=== PATIENT | male | born 1980 | race Two or more races ===

== ENCOUNTER 2018-06-03 02:43 | Emergency (ER) | payer BC, OTHER ==
[2018-06-03 03:29] LABS: ABSOLUTE EOSINOPHILS # (AUTO) 0.2 10^3/uL (0.0-0.6); ABSOLUTE MONOCYTES (AUTO) 1.3 10^3/uL (0.1-1.4); ABSOLUTE NEUT (AUTO) 9.4 10^3/uL (1.7-8.2); BASOPHILS % (AUTO) 0.2 % (0-2); EOSINOPHILS % (AUTO) 1.3 % (0-6); HEMATOCRIT 40.5 % (37.9-51.0); HEMOGLOBIN 13.9 g/dL (13.5-17.0); LYMPHOCYTES % (AUTO) 21.4 % (13-45); MEAN CORPUSCULAR HEMOGLOBIN 29.2 pg (27.0-33.4); MEAN CORPUSCULAR HGB CONC 34.3 g/dL (32.0-36.0); MEAN CORPUSCULAR VOLUME 85 fl (80-97); MONOCYTES % (AUTO) 9.6 % (3-13); PLATELET COUNT 247 10^3/uL (150-450); RED BLOOD COUNT 4.78 10^6/uL (4.35-5.55); RED CELL DISTRIBUTION WIDTH 12.6 % (11.5-14.0); SEGMENTED NEUTROPHILS % (AUTO) 67.5 % (42-78); TOTAL CELLS COUNTED % (AUTO) 100 %
[2018-06-03] MEDS ORDERED: MORPHINE SULFATE 10 MG/ML INJ IV ONE ×2 (03:31→05:16)
[2018-06-03] MEDS ORDERED: NORMAL SALINE 1000 ML 1,000 ML IV ONE (03:31)
[2018-06-03] MEDS ORDERED: KETOROLAC TROMETHAMINE INJ/PF 30 MG/1 ML SDV IV ONE (03:31)
[2018-06-03] MEDS ORDERED: ONDANSETRON HCL INJ/PF 4 MG/2 ML SDV IV ONE (03:31)
--- NOTE | 2018-06-03 03:42 | ER Document Report ---
ED General - General Chief Complaint: Flank Pain Stated Complaint: FLANK PAIN Time Seen by Provider: 06/03/18 03:13 TRAVEL OUTSIDE OF THE [place] IN LAST 30 DAYS: No - HPI Notes: Patient is a 37-year-old male that presents to the emergency department for chief complaint of left flank pain. Patient had ureterolithiasis last week and had stent placed in [place] by urology. Yesterday the stent was removed. Since having the stent out he has had increased pain in his left flank that radiates into his left lower abdomen. Patient has associated nausea and vomiting. Denies any aggravating or relieving factors. Current history is somewhat limited because of patient's active vomiting and pain. Past Medical History: Ureterolithiasis Past Surgical History: Ureteral stenting Social History: Reviewed in chart Family History: Reviewed and noncontributory for presenting illness Allergies: Reviewed, see documented allergy list. REVIEW OF SYSTEMS: CONSTITUTIONAL : No fever No chills No diaphoresis No recent illness EENT: No vision changes No congestion No sore throat CARDIOVASCULAR: No chest pain No palpitations RESPIRATORY: No shortness of breath No cough No difficulty breathing GASTROINTESTINAL: Left flank pain abdominal pain nausea vomiting No diarrhea GENITOURINARY: No dysuria No hematuria No difficulty urinating MUSCULOSKELETAL: No back pain No leg pain No arm pain SKIN: No rashes No lesions LYMPHATIC: No swollen, enlarged glands. NEUROLOGICAL: No lightheadedness No headache No weakness No paresthesias PSYCHIATRIC: No anxiety No depression PHYSICAL EXAMINATION: Vital signs reviewed, nursing noted reviewed. GENERAL: Ill-appearing, actively vomiting, well-nourished HEAD: Atraumatic, normocephalic. EYES: Eyes appear normal, extraocular movements intact, sclera anicteric, conjunctiva are normal. ENT: nares patent, oropharynx clear without exudates. Moist mucous membranes. NECK: Normal range of motion, supple without lymphadenopathy LUNGS: Breath sounds clear to auscultation bilaterally and equal. No wheezes rales or rhonchi. HEART: Regular rate and rhythm without murmurs ABDOMEN: Left CVA tenderness, soft, nontender, normoactive bowel sounds. No rebound, guarding, or rigidity. No masses appreciated. EXTREMITIES: Nontender, good range of motion, no pitting or edema. NEUROLOGICAL: No focal neurological deficits. Moves all extremities spontaneously Motor and sensory grossly intact on exam. PSYCH: Normal mood, normal affect. SKIN: Warm, Dry, normal turgor, no rashes or lesions noted on exposed skin - Related Data Allergies/Adverse Reactions: Penicillins Allergy (Verified 06/03/18 03:55) Past Medical History - Social History Smoking Status: Never Smoker Family History: Reviewed & Not Pertinent Pulmonary Medical History: Reports: Hx Asthma Renal/ Medical History: Reports: Hx Kidney Stones Past Surgical History: Reports: Hx Tonsillectomy - Immunizations Immunizations up to date: No Physical Exam - Vital signs Vitals: Temp Pulse Resp BP Pulse Ox 97.9 F 90 18 157/92 H 97 06/03/18 02:44 06/03/18 02:44 06/03/18 02:44 06/03/18 02:44 06/03/18 02:44 Course - Re-evaluation Re-evalutation: 06/03/18 03:41 Vitals reviewed. Nursing notes reviewed. Patient is actively vomiting during my initial evaluation. He was ordered IV hydration, Zofran, Toradol and morphine for symptomatic management. Patient does have a leukocytosis of 14 however he has no other Sirs criteria and is therefore not meeting sepsis criteria. 06/03/18 04:54 Patient has left-sided associated hydronephrosis without discernible stone this is secondary to his recently passed ureterolithiasis. His renal function is normal. He does have a slight leukocytosis of 14 and some bacteria on UA. Patient is currently on antibiotics and has at least 5 days left, he will continue antibiotics as already prescribed. He did get relief after medication. Patient was encouraged to follow-up with his urologist in the next 1-2 days. Patient is currently tolerating oral intake and feeling better. Laboratory 06/03/18 06/03/18 06/03/18 03:15 03:15 04:25 WBC 14.0 H RBC 4.78 Hgb 13.9 Hct 40.5 MCV 85 MCH 29.2 MCHC 34.3 RDW 12.6 Plt Count 247 Seg Neutrophils % 67.5 Lymphocytes % 21.4 Monocytes % 9.6 Eosinophils % 1.3 Basophils % 0.2 Absolute Neutrophils 9.4 H Absolute Lymphocytes 3.0 Absolute Monocytes 1.3 Absolute Eosinophils 0.2 Absolute Basophils 0.0 Sodium 140.3 Potassium 4.1 Chloride 102 Carbon Dioxide 28 Anion Gap 10 BUN 20 Creatinine 1.06 Est GFR ( Amer) > 60 Est GFR (Non-Af Amer) > 60 Glucose 105 Calcium 9.4 Urine Color YELLOW Urine Appearance SLIGHTLY-CLOUDY Urine pH 5.0 Ur Specific [place] 1.017 Urine Protein 100 H Urine Glucose (UA) NEGATIVE Urine Ketones NEGATIVE Urine Blood LARGE H Urine Nitrite NEGATIVE Urine Bilirubin NEGATIVE Urine Urobilinogen NEGATIVE Ur Leukocyte Esterase TRACE H Urine WBC (Auto) 20 Urine RBC (Auto) >182 Urine Bacteria (Auto) TRACE Squamous Epi Cells Auto <1 Calcium Oxalate Cr Auto RARE Urine Mucus (Auto) OCC Urine Yeast (Budding) PRESENT Urine Ascorbic Acid NEGATIVE 06/03/18 05:09 - Vital Signs Vital signs: Temp Pulse Resp BP Pulse Ox 97.9 F 90 18 157/92 H 97 06/03/18 02:44 06/03/18 02:44 06/03/18 02:44 06/03/18 02:44 06/03/18 02:44 - Laboratory Result Diagrams: 06/03/18 03:15 06/03/18 03:15 Laboratory results interpreted by me: 06/03/18 06/03/18 03:15 04:25 WBC 14.0 H Absolute Neutrophils 9.4 H Urine Protein 100 H Urine Blood LARGE H Ur Leukocyte Esterase TRACE H Discharge - Discharge Clinical Impression: Left flank pain Hydronephrosis Qualifiers: Hydronephrosis type: unspecified Qualified Code(s): N13.30 - Unspecified hydronephrosis Condition: Stable Disposition: HOME, SELF-CARE Instructions: Flank Pain ([facility]) Additional Instructions: Please return to the emergency department if you have any worsening, or concern of your symptoms. Please return to the emergency department if you develop chest pain, difficulty breathing, severe abdominal pain, or ongoing vomiting. Please follow-up with your primary care physician in 2-3 days and any other recommended physicians. If prescribed, take all medications as directed. If you have any questions or concerns do not hesitate to return the emergency department for evaluation. Call your urologist in the morning for close follow-up Prescriptions: Cephalexin Monohydrate [Keflex 500 mg Capsule] 500 mg PO Q6H 5 Days capsule Oxycodone HCl/Acetaminophen [Percocet 5-325 mg Tablet] 1 tab PO Q4H PRN #8 tablet PRN Reason: Tamsulosin HCl [Flomax 0.4 mg Cap.sr] 0.4 mg PO DAILY #7 cap.sr.24h
[2018-06-03 04:13] LABS: ANION GAP 10 (5-19); BLOOD UREA NITROGEN 20 mg/dL (7-20); CALCIUM 9.4 mg/dL (8.4-10.2); CARBON DIOXIDE 28 mmol/L (22-30); CHLORIDE 102 mmol/L (98-107); GLUCOSE 105 mg/dL (75-110); POTASSIUM 4.1 mmol/L (3.6-5.0); SODIUM 140.3 mmol/L (137-145)
[2018-06-03 04:42] LABS: APPEARANCE,URINE SLIGHTLY-CLOUDY; BILIRUBIN,URINE NEGATIVE (NEGATIVE); CALCIUM OXALATE CRYSTALS,URINE RARE /HPF; COLOR,URINE YELLOW; GLUCOSE, URINE NEGATIVE (NEGATIVE); KETONES,URINE NEGATIVE (NEGATIVE); LEUKOCYTE ESTERASE,URINE TRACE (NEGATIVE); NITRITE,URINE NEGATIVE (NEGATIVE); PROTEIN,URINE 100 mg/dL (NEGATIVE); URINE SPECIFIC GRAVITY 1.017; UROBILINOGEN,URINE NEGATIVE mg/dL (<2.0)
--- NOTE | 2018-06-03 05:03 | RADIOLOGY REPORT (SQ) ---
EXAM DESCRIPTION: CT ABDOMEN PELVIS WITHOUT IV CONTRAST COMPLETED DATE/TME: 06/03/2018 03:42 CLINICAL HISTORY: 37 years Male, left flank pain Comparison:08/06/2015 Technique: No contrast. Coronal and sagittal reformat. This exam was performed according to our departmental dose-optimization program, which includes automated exposure control, adjustment of the mA and/or kV according to patient size and/or use of iterative reconstruction technique.[facility]: Dose Right [facility]: CareDose [facility]: Dose Right [facility]: Teradose 4D [facility]: [employer] LIMITATIONS: None Findings: Moderate left hydronephrosis/hydroureter, moderate left periureteral fat stranding, and minimal left perinephric fat stranding. No obstructive stone. Previous left proximal ureteral stone is absent compared with CT from July 2015. Chronic left pelvic phlebolith. Punctate right nephrolithiasis. Normal appendix. Unenhanced lower thorax, abdominopelvic structures, and musculoskeleton appear otherwise grossly unremarkable. Impression: Moderate obstructive findings of the left urinary collecting system. No obstructive stone discerned. Differential etiologies include recently passed stone, scar, chronic dilation, or occult neoplasm. Consider multiphase contrast CT of the renal system or Urology consultation.
[2018-06-03 05:32] VITALS: BP 137/77
== END 2018-06-03 05:33 | disposition home or self-care (01) ==
LOC: ER 02:43
DX: N13.39 Other hydronephrosis (principal); D72.829 Elevated white blood cell count, unspecified; R11.2 Nausea with vomiting, unspecified; J45.909 Unspecified asthma, uncomplicated; R10.9 Unspecified abdominal pain
CPT/HCPCS: 96376; 99284; 96361; 96374; 96375; 36415; 87086; 85025; 80048; 81001; 74176; J1885; J2270; J2405; J7030

== ENCOUNTER 2019-02-15 23:08 | Emergency (ER) | payer BC ==
[2019-02-16] MEDS ORDERED: NAPROXEN 250 MG TABLET PO ONE (00:23)
[2019-02-16] MEDS ORDERED: DIPH/PERTUSS(ACELL)/TETANUS VAC/PF 0.5 ML SYR (>=10YO) IM ONE (00:23)
--- NOTE | 2019-02-16 01:00 | ER Document Report ---
ED General - General Chief Complaint: Thumb Injury Stated Complaint: HAND INJURY Time Seen by Provider: 02/15/19 23:57 Primary Care Provider: [facility] [Provider Group] - Follow up in 3-5 days TRAVEL OUTSIDE OF THE [place] IN LAST 30 DAYS: No - HPI Notes: 38-year-old male to the emergency department with complaints of thumb pain and possible retained foreign body. He states that today he was cleaning up some wood when the wood splintered and he thought it went into his thumb. He states that he noticed that the wood splinter and then he broke it off and through the office of he would not injure his hands further. He states that when he did that he noticed that he started to have pain to the medial aspect of the right thumb along the nailbed. He states that he attempted to look for "a thorn or splinter" but was unsuccessful in finding one he states that he did notice that when he squeezed his thumb he had some bleeding around the nailbed. He denies any fevers, chills, pus, streaking redness. He states that he has not taken anything for pain. He denies being up-to-date on his tetanus. He is right- handed. - Related Data Allergies/Adverse Reactions: Penicillins Allergy (Verified 06/03/18 03:55) Past Medical History - General Information source: Patient, Relative - Social History Smoking Status: Never Smoker Frequency of alcohol use: None Drug Abuse: None Family History: Reviewed & Not Pertinent Pulmonary Medical History: Reports: Hx Asthma Renal/ Medical History: Reports: Hx Kidney Stones. Denies: Hx Peritoneal Dialysis Past Surgical History: Reports: Hx Tonsillectomy - Immunizations Immunizations up to date: No Review of Systems - Review of Systems Constitutional: denies: Chills, Fever EENT: No symptoms reported Cardiovascular: denies: Chest pain, Dizziness, Lightheaded Respiratory: denies: Cough, Short of breath Gastrointestinal: denies: Abdominal pain, Diarrhea, Nausea, Vomiting Musculoskeletal: See HPI, Joint pain Skin: See HPI Neurological/Psychological: denies: Headaches -: Yes All other systems reviewed and negative Physical Exam - Vital signs Vitals: Temp Pulse Resp BP Pulse Ox 97.7 F 64 16 130/93 H 99 02/15/19 23:12 02/15/19 23:12 02/15/19 23:12 02/15/19 23:12 02/15/19 23:12 Interpretation: Normal - General General appearance: Appears well, Alert In distress: None - HEENT Head: Normocephalic, Atraumatic Eyes: Normal Pupils: PERRL - Respiratory Respiratory status: No respiratory distress Chest status: Nontender Breath sounds: Normal Chest palpation: Normal - Cardiovascular Rhythm: Regular Heart sounds: Normal auscultation Murmur: No - Extremities Notes: To the medial aspect of the right thumb along the nailbed there is tenderness to palpation. There is multiple small abrasions with bleeding controlled. There does not appear to be any foreign body in the skin. There is mild edema surrounding the nailbed. There is no purulent drainage. The finger is not flexed it is not circumferentially edematous and it is not tender along the flexor tendon sheath just and just in a flexor tenosynovitis. Cap refill is less than 2 seconds. Patient has 5 out of 5 handgrip bilaterally. Radial pulses are intact and equal. Nontender to palpation of her bilateral wrists and elbow. Patient can wiggle all fingers against resistance in flexion and extension and opposition in the thumb and the little finger. - Neurological Neuro grossly intact: Yes Cognition: Normal Orientation: AAOx4 Sarita Coma Scale Eye Opening: Spontaneous Sarita Coma Scale Verbal: Oriented [place] Coma Scale Motor: Obeys Commands Sarita Coma Scale Total: 15 Speech: Normal Motor strength normal: LUE, RUE, LLE, RLE Sensory: Normal - Psychological Associated symptoms: Normal affect, Normal mood - Skin Skin Temperature: Warm Skin Moisture: Dry Skin Color: Normal Skin irregularity: Laceration - See extremities for further discussion about abrasions around the nailbed on the thumb. Course - Re-evaluation Re-evalutation: 02/16/19 Finger X-Ray 02/16/19 00:22 IMPRESSION: No evidence of acute osseous injury involving the right thumb. No radiopaque foreign body is identified. Impression: Right thumb injury, right thumb abrasion. No foreign body seen on my exam and none on x-ray. Suspect that patient contused the thumb but will also cover with an antibiotic due to the abrasions around the thumb. This could be an early and evolving paronychia. Discussed with patient and he agrees with the plan. We will send home with pain medicine and antibiotics. I encouraged to return if any fevers worsening pain redness worsening swelling or any other complaints patient agrees with the plan. - Vital Signs Vital signs: Temp Pulse Resp BP Pulse Ox 98 F 62 16 126/82 H 97 02/16/19 01:02/16/19 01:02/16/19 01:02/16/19 01:02/16/19 01:20 - Diagnostic Test Radiology reviewed: Image reviewed, Reports reviewed Discharge - Discharge Clinical Impression: Thumb pain Qualifiers: Laterality: right Qualified Code(s): M79.644 - Pain in right finger(s) Abrasion of thumb Qualifiers: Encounter type: initial encounter Laterality: right Qualified Code(s): S60.311A - Abrasion of right thumb, initial encounter Thumb contusion Qualifiers: Encounter type: initial encounter Damage to nail status: without damage Condition: Stable Disposition: HOME, SELF-CARE Instructions: Contusion ([facility]) Additional Instructions: TAKE MEDICINES PRESCRIBED. COMPLETE ANTIBIOTICS. WARM COMPRESSES THREE TIMES A DAY FOR 20 MINUTES. RETURN IF WORSENING PAIN, WORSENING SWELLING, FEVERS, STREAKING REDNESS UP THE FINGER. Prescriptions: Ketorolac Tromethamine [Toradol 10 mg Tablet] 10 mg PO Q8HP PRN #12 tablet PRN Reason: Doxycycline Hyclate 100 mg PO BID #14 capsule Referrals: [facility] [Provider Group] - Follow up in 3-5 days
--- NOTE | 2019-02-16 01:17 | RADIOLOGY REPORT (SQ) ---
EXAM: X-ray fingers right CLINICAL DATA: 38-year-old male with possible retained foreign body in distal phalanx of 1st digit of right hand (splinter) TECHNICAL DATA: Three x-ray views of the 1st digit of the right hand were performed on 02/16/2019 at 12:58 AM. COMPARISONS: None FINDINGS: There is no evidence of fracture or dislocation. There is no significant arthritis or degenerative change. No focal lytic or sclerotic bone lesions are seen. Bone mineralization is normal. No focal soft tissue abnormalities are identified. No radiopaque foreign body is identified. There is no evidence of subcutaneous emphysema. IMPRESSION: No evidence of acute osseous injury involving the right thumb. No radiopaque foreign body is identified.
[2019-02-16 01:55] VITALS: BP 126/82
== END 2019-02-16 01:20 | disposition home or self-care (01) ==
LOC: ER 23:08
DX: S60.311A Abrasion of right thumb, initial encounter (principal); M79.644 Pain in right finger(s); W45.8XXA Other foreign body or object entering through skin, initial encounter; J45.909 Unspecified asthma, uncomplicated
CPT/HCPCS: 90471; 90715; 99283

== ENCOUNTER 2019-04-26 00:44 | Emergency (ER) | payer BC ==
[2019-04-26 01:24] LABS: ABSOLUTE EOSINOPHILS # (AUTO) 0.2 10^3/uL (0.0-0.6); ABSOLUTE LYMPHOCYTES (AUTO) 3.1 10^3/uL (0.5-4.7); ABSOLUTE MONOCYTES (AUTO) 1.1 10^3/uL (0.1-1.4); ABSOLUTE NEUT (AUTO) 7.6 10^3/uL (1.7-8.2); BASOPHILS % (AUTO) 0.3 % (0-2); EOSINOPHILS % (AUTO) 1.7 % (0-6); HEMATOCRIT 41.8 % (37.9-51.0); LYMPHOCYTES % (AUTO) 25.6 % (13-45); MEAN CORPUSCULAR HEMOGLOBIN 28.4 pg (27.0-33.4); MEAN CORPUSCULAR HGB CONC 33.6 g/dL (32.0-36.0); MEAN CORPUSCULAR VOLUME 85 fl (80-97); MONOCYTES % (AUTO) 9.1 % (3-13); PLATELET COUNT 289 10^3/uL (150-450); RED BLOOD COUNT 4.93 10^6/uL (4.35-5.55); RED CELL DISTRIBUTION WIDTH 12.9 % (11.5-14.0); SEGMENTED NEUTROPHILS % (AUTO) 63.3 % (42-78); TOTAL CELLS COUNTED % (AUTO) 100 %; WHITE BLOOD COUNT 12.1 10^3/uL (4.0-10.5)
[2019-04-26 01:32] LABS: APPEARANCE,URINE SLIGHTLY-CLOUDY; BILIRUBIN,URINE NEGATIVE (NEGATIVE); COLOR,URINE YELLOW; GLUCOSE, URINE NEGATIVE (NEGATIVE); KETONES,URINE NEGATIVE (NEGATIVE); LEUKOCYTE ESTERASE,URINE LARGE (NEGATIVE); NITRITE,URINE NEGATIVE (NEGATIVE); PROTEIN,URINE 30 mg/dL (NEGATIVE); URINE SPECIFIC GRAVITY 1.021; UROBILINOGEN,URINE NEGATIVE mg/dL (<2.0)
[2019-04-26 01:44] LABS: ALBUMIN 4.6 g/dL (3.5-5.0); ALKALINE PHOSPHATASE 62 U/L (38-126); ANION GAP 8 (5-19); ASPARTATE AMINO TRANSFERASE 25 U/L (17-59); BILIRUBIN,DIRECT 0.1 mg/dL (0.0-0.4); BILIRUBIN,TOTAL 0.3 mg/dL (0.2-1.3); BLOOD UREA NITROGEN 21 mg/dL (7-20); CALCIUM 9.7 mg/dL (8.4-10.2); CARBON DIOXIDE 32 mmol/L (22-30); CHLORIDE 101 mmol/L (98-107); GLUCOSE 103 mg/dL (75-110); POTASSIUM 4.1 mmol/L (3.6-5.0); TOTAL PROTEIN 7.9 g/dL (6.3-8.2)
[2019-04-26] MEDS ORDERED: ONDANSETRON HCL INJ/PF 4 MG/2 ML SDV IV ONE (02:27)
[2019-04-26] MEDS ORDERED: FENTANYL CITRATE INJ/PF 100 MCG/2 ML AMPUL IV ONE (02:27)
--- NOTE | 2019-04-26 02:35 | ER Document Report ---
ED General - General Chief Complaint: Flank Pain Stated Complaint: FLANK/ABDOMINAL PAIN Time Seen by Provider: 04/26/19 02:23 TRAVEL OUTSIDE OF THE [place] IN LAST 30 DAYS: No - HPI Notes: Patient is a 38-year-old male with a history of kidney stones, left ureteral scarring, and recent nephrostomy tube, who presents to the emergency department for evaluation of left flank pain. He states this started about 2 to 3 hours prior to my evaluation. He describes a sharp stabbing pain with 2-3 episodes of nonbloody, nonbilious emesis. He is concerned it might be blocked. He is scheduled for ureteral reconstruction of the end of April by urology and [facility]. No known fevers to his knowledge. - Related Data Allergies/Adverse Reactions: ceftriaxone [From Rocephin] Allergy (Verified 04/26/19 00:45) Penicillins Allergy (Verified 04/26/19 00:44) Home Medications: Ultram, potassium Past Medical History - General Information source: Patient - Social History Smoking Status: Never Smoker Family History: Reviewed & Not Pertinent Patient has suicidal ideation: No Patient has homicidal ideation: No Pulmonary Medical History: Reports: Hx Asthma Renal/ Medical History: Reports: Hx Kidney Stones. Denies: Hx Peritoneal Dialysis Past Surgical History: Reports: Hx Tonsillectomy - Immunizations Immunizations up to date: No Review of Systems - Review of Systems Constitutional: No symptoms reported EENT: No symptoms reported Cardiovascular: No symptoms reported Respiratory: No symptoms reported Gastrointestinal: See HPI Genitourinary: See HPI Musculoskeletal: No symptoms reported Skin: No symptoms reported Neurological/Psychological: No symptoms reported Physical Exam - Vital signs Vitals: Temp Pulse Resp BP Pulse Ox 97.6 F 89 18 141/91 H 98 04/26/19 00:49 04/26/19 00:49 04/26/19 00:49 04/26/19 00:49 04/26/19 00:49 - Notes Notes: Is a 38-year-old male who appears her stated age in a moderate amount of distress. He is visibly uncomfortable, mildly tachypneic, extremely nauseated. Vital signs reviewed, please refer to chart. Head is normocephalic, atraumatic. Pupils equal round, reactive to light. Neck is supple without meningismus. Heart is regular rate and rhythm. Lungs are clear to auscultation bilaterally. Abdomen is soft, nontender, normoactive bowel sounds throughout. Patient has nephrostomy tube in place on the left with cloudy yellow urine noted. Extremities without cyanosis, clubbing. Posterior calves are nontender. Peripheral pulses are equal. Skin is warm and dry. Course - Re-evaluation Re-evalutation: 04/26/19 02:38 Patient presents emergency department for evaluation. He has nephrostomy tube in place. He has sudden onset of increased pain and vomiting. He does have mildly elevated white count and large leukocyte esterase noted in his urine. Patient had IV placed, was given IV fluids, pain medicine, nausea medicine. We will send him for an IV contrasted scan to evaluate for pyelonephritis or other acute finding. Patient stable, we will continue to monitor. 04/26/19 05:[address] scan did show continued hydronephrosis, hydroureter, and a 1.5 cm ureteral stone. This was known to the patient. I went in to evaluate the patient. Using sterile technique, 10 mL of saline were flushed through the nephrostomy tube. Following this, the nephrostomy tube was draining without difficulty. Patient increased output from this nephrostomy, thus clearing the apparent blockage. The patient was feeling clinically improved. Given this improvement as well as the sudden onset of his pain and nausea, my suspicion is that all of his symptoms were from blockage. The urine sample that he provided, not from the nephrostomy bag, did infection or large leukocyte esterase. Given this information I am inclined to treat him for possible UTI, although I suspect that most of his symptoms are secondary to nephrostomy tube obstruction. I will send the patient home with a small amount of pain medicine and nausea medication. I will send him home with a prescription for Cipro. He is to follow-up with Dr. hollis, return to the ED with worsening. 04/26/19 05:59 04/26/19 06:[address] Sweeney, urologist from [facility]. The patient was discussed. He agrees it was likely a blocked nephrostomy tube, but given the presence of budding yeast, he recommends the addition of Diflucan to this patient's regimen. This was explained to the patient, first dose was given here, and prescription was written. - Vital Signs Vital signs: Temp Pulse Resp BP Pulse Ox 98.4 F 101 H 18 125/79 96 04/26/19 05:41 04/26/19 05:41 04/26/19 00:49 04/26/19 05:41 04/26/19 05:41 - Laboratory Result Diagrams: 04/26/19 01:10 04/26/19 01:10 Laboratory results interpreted by me: 04/26/19 04/26/19 04/26/19 01:10 01:10 01:10 WBC 12.1 H Carbon Dioxide 32 H BUN 21 H Urine Protein 30 H Urine Blood SMALL H Ur Leukocyte Esterase LARGE H - Diagnostic Test Radiology reviewed: Image reviewed, Reports reviewed Radiology results interpreted by me: 04/26/19 05:58 Abdomen/Pelvis CT 04/26/19 02:28 IMPRESSION: 1. 1.5 cm obstructing calculus in the mid left ureter. Severe left hydronephrosis. 2. Left nephrostomy tube in place. Correlation for nephrostomy tube function recommended. This exam was performed according to our departmental dose-optimization program, which includes automated exposure control, adjustment of the mA and/or kV according to patient size and/or use of iterative reconstruction technique. Discharge - Discharge Clinical Impression: Obstructed nephrostomy tube, Urinary tract infection Condition: Stable Disposition: HOME, SELF-CARE Instructions: Ciprofloxacin ([facility]), Urinary Tract Infection ([facility]) Additional Instructions: Take medications as directed. Follow-up with Dr. hollis next week. If you develop fever, increased pain, vomiting, or any other new or concerning symptoms, please return immediately to the emergency department for reevaluation. Prescriptions: Ciprofloxacin HCl [Cipro 500 mg Tablet] 500 mg PO BID #14 tablet Fluconazole [Diflucan] 150 mg PO DAILY #4 tablet
[2019-04-26] MEDS ORDERED: NORMAL SALINE 1000 ML 1,000 ML IV ONE (02:39)
[2019-04-26] MEDS ORDERED: HYDROMORPHONE HCL INJ/PF 2 MG/ML AMPULE IV ONE (03:17)
--- NOTE | 2019-04-26 04:17 | RADIOLOGY REPORT (SQ) ---
EXAM DESCRIPTION: CT ABDOMEN PELVIS WITH IV CONTRAST COMPLETED DATE/TME: 04/26/2019 02:28 CLINICAL HISTORY: left flank pain, recent nephrostomy tube placement COMPARISON: 06/17/2015 TECHNIQUE: CT of the abdomen and pelvis performed following IV administration of 100 mL of Omnipaque 350. FINDINGS: Lung Bases: The visualized lung bases are clear. Bones: No destructive bone lesions identified. Abdomen: Liver: The liver has normal size and density. No intrahepatic mass or biliary dilatation. Gallbladder: No calcified gallstones. Spleen, Pancreas, and Adrenal Glands: The spleen, pancreas, and adrenal glands are unremarkable. Kidneys: Left percutaneous nephrostomy tube. Severe left hydronephrosis. There is a greater 1.5 cm obstructing calculus in the mid left ureter. Left perinephric change. No right-sided hydronephrosis. Vasculature: The aorta and IVC have normal caliber and position. The portal vein is patent. The proximal visceral and renal arteries are patent. Stomach: The stomach and duodenum have normal course. Other: No free intraperitoneal air. No free fluid or lymphadenopathy. Pelvis: Bladder: Curvilinear calcification is urinary bladder. Bowel: No dilated loops of large or small bowel. Appendix: Normal appendix. Pelvis: Prostate is not enlarged. IMPRESSION: 1. 1.5 cm obstructing calculus in the mid left ureter. Severe left hydronephrosis. 2. Left nephrostomy tube in place. Correlation for nephrostomy tube function recommended. This exam was performed according to our departmental dose-optimization program, which includes automated exposure control, adjustment of the mA and/or kV according to patient size and/or use of iterative reconstruction technique.
[2019-04-26] MEDS ORDERED: CIPROFLOXACIN 400 MG/D5W RTU 400 MG/200 ML RTUPB IV ONE (05:16)
[2019-04-26] MEDS ORDERED: ONDANSETRON ODT 4 MG TAB (6 TAB/ER DISP) PO PRN (05:59)
[2019-04-26] MEDS ORDERED: HYDROCODONE/ACETAMINOPHEN 5-325 MG (6 TAB/ER DISP) PO PRN (05:59)
[2019-04-26] MEDS ORDERED: FLUCONAZOLE 100 MG TABLET PO ONE (06:07)
[2019-04-26 06:46] VITALS: BP 143/90
== END 2019-04-26 06:54 | disposition home or self-care (01) ==
LOC: ER 00:44
DX: T83.092A Other mechanical complication of nephrostomy catheter, initial encounter (principal); Y73.8 Miscellaneous gastroenterology and urology devices associated with adverse incidents, not elsewhere classified; N39.0 Urinary tract infection, site not specified; N13.2 Hydronephrosis with renal and ureteral calculous obstruction; D72.829 Elevated white blood cell count, unspecified; R10.9 Unspecified abdominal pain; R11.2 Nausea with vomiting, unspecified; R06.82 Tachypnea, not elsewhere classified; J45.909 Unspecified asthma, uncomplicated; Z79.899 Other long term (current) drug therapy; Z93.6 Other artificial openings of urinary tract status; Z88.1 Allergy status to other antibiotic agents; Z88.0 Allergy status to penicillin
CPT/HCPCS: 99284; 96361; 96375; 96365; 36415; 87040; 87086; 85025; 87088; 80053; 81001; 87186; 74177; J3010; J1170; J2405; J7030; J0744

== ENCOUNTER 2020-01-23 16:52 | Emergency (ER) | payer BC ==
[2020-01-23] MEDS ORDERED: NORMAL SALINE 1000 ML 1,000 ML IV ONE (17:25)
--- NOTE | 2020-01-23 17:31 | ER Document Report ---
ED General - General Chief Complaint: Abdominal Pain Stated Complaint: FEELING FAINT/NAUSEA Time Seen by Provider: 01/23/20 17:06 TRAVEL OUTSIDE OF THE [place] 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 He was intensely diaphoretic and became weak and shaky and experienced diffuse muscular cramping. He was very nauseated but did not vomit. He denies any chest pain. He was given 1 L normal saline by EMS during transport. His symptoms have now essentially resolved. Patient has a history of renal stones and has had previous obstruction of the left ureter and required surgery including placement of a ureterostomy and subsequent left ureteral reimplantation surgery. He had been to his urologist this morning for routine follow-up. They note that he is having some intermittent colic and has a new stone on the left side but this appears to be small and they recommended conservative medical therapy and start him on Flomax hoping that he will spontaneously passed the stone. Patient is otherwise generally healthy. He reports allergies to Rocephin and penicillin. He is a non-smoker and says he rarely consumes social alcohol. He denies any drug use. - Related Data Allergies/Adverse Reactions: ceftriaxone [From Rocephin] Allergy (Verified 04/26/19 00:45) Penicillins Allergy (Verified 04/26/19 00:44) Home Medications: ibuprofen, potassium, afrin Past Medical History - General Information source: Patient, Relative, [facility] Records - Social History Smoking Status: Never Smoker Frequency of alcohol use: None Drug Abuse: None Occupation: sheep farm worker Lives with: Family Family History: Reviewed & Not Pertinent Pulmonary Medical History: Reports: Hx Asthma Renal/ Medical History: Reports: Hx Kidney Stones. Denies: Hx Peritoneal Dialysis Past Surgical History: Reports: Hx Kidney (Renal Surgery) - left ureter surgery, Hx Tonsillectomy - Immunizations Immunizations up to date: No Review of Systems - Review of Systems Notes: Constitutional: As per HPI. HENT: Negative for sore throat. Eyes: Negative for visual changes. Cardiovascular: Negative for chest pain. Respiratory: Negative for shortness of breath. Gastrointestinal: As per HPI. Genitourinary: Negative for dysuria. Musculoskeletal: Negative for back pain. Skin: Negative for rash. Neurological: Negative for headaches, focal weakness or numbness. 10 point ROS negative except as marked above and in HPI. Physical Exam - Vital signs Vitals: Temp Pulse Resp BP Pulse Ox 98.6 F 83 16 133/79 H 100 01/23/20 17:01 01/23/20 17:01 01/23/20 17:01 01/23/20 17:01 01/23/20 17:01 - Notes Notes: GENERAL: Well-developed well-nourished male approximately stated age appearing in no acute distress. SKIN: Mildly diaphoretic. Good turgor no rashes. HEAD: Normocephalic atraumatic. EYES: PERRLA. EOMI. Conjunctivae and sclerae clear. EARS: CANALS AND TMS CLEAR. NOSE: CLEAR. MOUTH: Moist mucosa. Good dentition. No stridor or edema. No drooling. NECK: Supple. No masses or thyromegaly. No adenopathy. Carotids 2+ without bruits. No JVD. BACK: Symmetrical without tenderness. CHEST: Respirations unlabored. Breath sounds clear and symmetrical. HEART: Regular rhythm. No murmur gallop or rub. ABDOMEN: Soft nontender without masses, organomegaly or rebound. Bowel sounds normally active. No bruits. GENITALIA: Deferred. EXTREMITIES: No edema. No calf tenderness. Cap refill less than 1.5 seconds. Dorsalis pedis and posterior tibial pulses 3+ and symmetrical. NEUROLOGICAL: GCS 15. Alert and oriented x3. Fluent speech. Cranial nerves II through XII intact. Sensorimotor and cerebellar normal. Normal tone. PSYCHIATRIC: Appropriate affect. Course - Re-evaluation Re-evalutation: 01/23/20 18:58 Clinically patient has heat exhaustion. He received 2 L of IV normal saline here and is currently asymptomatic. EKG shows LVH and a single PVC. His troponin is normal. His comprehensive metabolic profile and CBC are unremarkable as is his urinalysis. CK was mildly elevated 350. He appears stable for outpatient follow-up with PMD and I suggested that he avoid heat stress within the next 3 days and increase oral fluid intake. Findings, clinical impression and plan of treatment have been discussed with patient/family. Understanding of current findings and recommendations has been acknowledged by them and there is agreement regarding disposition and follow-up. - Vital Signs Vital signs: Temp Pulse Resp BP Pulse Ox 98.6 F 83 16 133/79 H 100 01/23/20 17:01 01/23/20 17:01 01/23/20 17:01 01/23/20 17:01 01/23/20 17:01 - Laboratory Result Diagrams: 01/23/20 16:59 01/23/20 16:59 Laboratory results interpreted by me: 01/23/20 16:59 Creatine Kinase 248 H - EKG Interpretation by Me Additional EKG results interpreted by me: 01/23/20 17:52 Twelve-lead EKG from 1732 hrs. shows normal sinus rhythm with a rate of 83 and a single PVC. QRS axis is +3 degrees. Intervals are normal. Changes consistent with LVH are noted. No acute ST changes are present. There is no prior tracing for comparison. Impression: Normal sinus rhythm with single PVC and left ventricular hypertrophy. Indication for current study: Heat exhaustion. Discharge - Discharge Clinical Impression: Heat exhaustion Condition: Stable Disposition: HOME, SELF-CARE Additional Instructions: Heat Exhaustion You have had an episode of heat exhaustion. The body overheats when sweating fails to keep the temperature down due to high humidity, exercise, or dehydration. Typical symptoms may include muscle cramps, dizziness, nausea, and even chilling. You should rest and drink plenty of fluids. Do not resume any activities until you feel fully back to normal. To prevent a recurrence, avoid working in the heat. Always drink plenty of fluids when the weather is hot, particularly if you will be exercising. Use extra caution when the humidity is high. If you feel symptoms of heat illness, douse yourself with cold water and rest in the shade. Call the doctor if you develop confusion, repeated vomiting, severe headache, severe muscle spasms, fever, chest pain or shortness of breath. Return here as needed for new or worsening symptoms: Pain that is worsening or unimproved Uncontrolled vomiting High fever or shaking chills Overall worsening Follow-up with your primary care physician as needed.
[2020-01-23 17:55] LABS: ABSOLUTE EOSINOPHILS # (AUTO) 0.1 10^3/uL (0.0-0.6); ABSOLUTE LYMPHOCYTES (AUTO) 1.7 10^3/uL (0.5-4.7); ABSOLUTE MONOCYTES (AUTO) 0.6 10^3/uL (0.1-1.4); ABSOLUTE NEUT (AUTO) 5.6 10^3/uL (1.7-8.2); BASOPHILS % (AUTO) 0.4 % (0-2); EOSINOPHILS % (AUTO) 1.8 % (0-6); HEMATOCRIT 41.6 % (37.9-51.0); LYMPHOCYTES % (AUTO) 21.3 % (13-45); MEAN CORPUSCULAR HEMOGLOBIN 28.7 pg (27.0-33.4); MEAN CORPUSCULAR HGB CONC 33.6 g/dL (32.0-36.0); MEAN CORPUSCULAR VOLUME 86 fl (80-97); MONOCYTES % (AUTO) 7.8 % (3-13); PLATELET COUNT 230 10^3/uL (150-450); RED BLOOD COUNT 4.87 10^6/uL (4.35-5.55); RED CELL DISTRIBUTION WIDTH 13.3 % (11.5-14.0); SEGMENTED NEUTROPHILS % (AUTO) 68.7 % (42-78); TOTAL CELLS COUNTED % (AUTO) 100 %; WHITE BLOOD COUNT 8.2 10^3/uL (4.0-10.5)
[2020-01-23 18:00] LABS: ALBUMIN 4.4 g/dL (3.5-5.0); ALKALINE PHOSPHATASE 67 U/L (38-126); ANION GAP 7 (5-19); ASPARTATE AMINO TRANSFERASE 29 U/L (17-59); BILIRUBIN,DIRECT 0.3 mg/dL (0.0-0.4); BILIRUBIN,TOTAL 0.6 mg/dL (0.2-1.3); BLOOD UREA NITROGEN 17 mg/dL (7-20); CALCIUM 9.6 mg/dL (8.4-10.2); CARBON DIOXIDE 26 mmol/L (22-30); CHLORIDE 106 mmol/L (98-107); CREATINE KINASE 248 U/L (55-170); GLUCOSE 100 mg/dL (75-110); POTASSIUM 4.4 mmol/L (3.6-5.0); TOTAL PROTEIN 7.4 g/dL (6.3-8.2)
[2020-01-23 18:02] LABS: ALCOHOL < 10 mg/dL (NONE DETECTED)
[2020-01-23 18:25] LABS: APPEARANCE,URINE SLIGHTLY-CLOUDY; BILIRUBIN,URINE NEGATIVE (NEGATIVE); COLOR,URINE YELLOW; GLUCOSE, URINE NEGATIVE (NEGATIVE); KETONES,URINE NEGATIVE (NEGATIVE); PROTEIN,URINE NEGATIVE (NEGATIVE); URINE SPECIFIC GRAVITY 1.021; UROBILINOGEN,URINE NEGATIVE mg/dL (<2.0)
[2020-01-23 18:30] LABS: AMORPHOUS SEDIMENT,UR TRACE; BACTERIA,URINE TRACE /HPF; RBC,URINE RARE /HPF
[2020-01-23 19:27] VITALS: BP 132/83
--- NOTE | 2020-01-24 11:17 | EKG REPORT ---
SEVERITY:- ABNORMAL ECG - SINUS RHYTHM VENTRICULAR PREMATURE COMPLEX PROBABLE LEFT ATRIAL ABNORMALITY LEFT VENTRICULAR HYPERTROPHY : Confirmed by: Tania Mcclain MD 24-Jan-2020 11:15:43
== END 2020-01-23 19:27 | disposition home or self-care (01) ==
LOC: ER 16:52
DX: T67.5XXA Heat exhaustion, unspecified, initial encounter (principal); R10.9 Unspecified abdominal pain; R61 Generalized hyperhidrosis; R53.1 Weakness; R25.2 Cramp and spasm; R11.0 Nausea; X58.XXXA Exposure to other specified factors, initial encounter; Z98.890 Other specified postprocedural states; Z88.0 Allergy status to penicillin; Z88.8 Allergy status to other drugs, medicaments and biological substances; Z79.899 Other long term (current) drug therapy; J45.909 Unspecified asthma, uncomplicated
CPT/HCPCS: 93005; 99284; 96360; 36415; 80307; 82550; 83735; 85025; 80053; 81001; 84484; 93010; J7030